=== PATIENT | male | born 1945 | race Caucasian/White ===

== ENCOUNTER 2017-05-22 08:21 | Emergency (ER) | payer OTHER ==
[~2017-05-22] VITALS: Ht 193 cm; Wt 79.5 kg
[~2017-05-22 08:21] MED LIST: IPRATROPIUM BROM3 M1 IH; LIBRIUM 25M25 MG/CAP PO; MS CONTIN 115 MG/TAB PO; MSIR30 MG PO; MUCOMYST IH; NEURONTIN400 MG/CAP PO; NITROSTAT0.4 MG/TAB SL; PEPCID 20MG TAB20 MG PO; PERFOROMIS20 MCG/2 M IH; PLAVIX 75MG TAB75 MG PO; PROSCAR 5MG5 MG PO; QUININE SULFAT300 MG PO; ROBAXIN 75750 MG/TAB PO; ROXICODONE 55 MG/TAB PO; VALIUM 2MG T2 MG/TAB PO; VITAMIN D31000 I1 PO; ZOCOR 40MG40 MG PO; ZYPREXA ZYDIS20 MG PO
[2017-05-22 08:25] VITALS: BP 152/81; PULSE 88; TEMP 97.8
[2017-05-22] MEDS ORDERED: PLAVIX 75MG TAB75 MG PO (08:46)
[2017-05-22] MEDS ORDERED: ROBAXIN 75750 MG/TAB PO (08:47)
[2017-05-22] MEDS ORDERED: VALIUM 10MG10 MG/TAB PO (08:48)
[2017-05-22] MEDS ORDERED: CEPHALEXIN500 M1 PO (09:18)
== END 2017-05-22 09:40 | disposition home or self-care (01) ==
LOC: COL.ER 08:21
DX: S91.205A Unspecified open wound of left lesser toe(s) with damage to nail, initial encounter (principal); F17.210 Nicotine dependence, cigarettes, uncomplicated; Z86.79 Personal history of other diseases of the circulatory system; Z98.890 Other specified postprocedural states; Z79.02 Long term (current) use of antithrombotics/antiplatelets; W26.9XXA Contact with unspecified sharp object(s), initial encounter